=== PATIENT | female | born 2000 | race Caucasian/White ===

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

== ENCOUNTER 2023-01-17 14:58 | Emergency (ER) | payer BC, OTHER, SELFPAY ==
[~2023-01-17] VITALS: Ht 160 cm; Wt 69.2 kg
[2023-01-17] MEDS ORDERED: KETOROLAC 30 MG/ML 1ML VIAL IM ONE (15:40)
[2023-01-17 16:33] VITALS: BP 124/75; TEMP 98.2; O2SAT 99
== END 2023-01-17 16:40 | disposition home or self-care (01) ==
LOC: M ED 14:58
DX: S93.402A Sprain of unspecified ligament of left ankle, initial encounter (principal); X50.0XXA Overexertion from strenuous movement or load, initial encounter; Y92.009 Unspecified place in unspecified non-institutional (private) residence as the place of occurrence of the external cause; Y93.41 Activity, dancing; Y99.8 Other external cause status
CPT/HCPCS: 73610; 96372; 99283; J1885